=== PATIENT | female | born 1955 | race Caucasian/White ===

== ENCOUNTER 2022-02-11 10:10 | Outpatient (CLI) | payer OTHER, SELFPAY ==
[2022-02-11 14:42] LABS: Albumin* 3.7 g/dL (3.3-5.0); Chloride* 106 mmol/L (96-114); Sodium* 138 mmol/L (135-149)
[2022-02-11 14:45] LABS: Alanine Aminotransferase* 32 U/L (4-35); Alkaline Phosphatase* 82 U/L (40-150); Aspartate Amino Transferase* 25 U/L (12-35); Bilirubin Total* 0.5 mg/dL (0.1-1.5); Blood Urea Nitrogen* 12 mg/dL (7-30); Carbon Dioxide* 28 mmol/L (20-32); Creatinine* 0.6 mg/dL (0.5-1.5); Estimated Glomerular Filt Rate 98.32; Glucose* 129 mg/dL (60-115); Total Protein* 5.8 g/dL (6.0-8.3)
[2022-02-11 14:46] LABS: Calcium* 8.8 mg/dL (8.4-10.6)
== END 2022-02-11 10:11 | disposition home or self-care (01) ==
LOC: LAB 13:47
PROVIDERS: PCP Family Medicine; Visit Provider Dermatology
DX: R53.83 Other fatigue (principal); Z79.899 Other long term (current) drug therapy
CPT/HCPCS: 36415; 80053

== ENCOUNTER 2022-04-05 11:33 | Outpatient (CLI) | payer OTHER, SELFPAY ==
[2022-04-05 17:57] LABS: Albumin* 3.8 g/dL (3.3-5.0); Chloride* 102 mmol/L (96-114); Potassium* 4.6 mmol/L (3.6-5.1); Sodium* 136 mmol/L (135-149)
[2022-04-05 17:59] LABS: Creatinine* 0.7 mg/dL (0.5-1.5); Estimated Glomerular Filt Rate 94 ml/min
[2022-04-05 18:00] LABS: Alanine Aminotransferase* 62 U/L (4-35); Alkaline Phosphatase* 88 U/L (40-150); Aspartate Amino Transferase* 35 U/L (12-35); Bilirubin Total* 0.6 mg/dL (0.1-1.5); Blood Urea Nitrogen* 12 mg/dL (7-30); Calcium* 9.1 mg/dL (8.4-10.6); Carbon Dioxide* 27 mmol/L (20-32); Glucose* 195 mg/dL (60-115); Total Protein* 6.2 g/dL (6.0-8.3)
== END 2022-04-05 11:34 | disposition home or self-care (01) ==
LOC: LONREF 11:34
PROVIDERS: PCP Family Medicine; Visit Provider Dermatology
DX: Z79.899 Other long term (current) drug therapy (principal)
CPT/HCPCS: 80053

== ENCOUNTER 2022-05-12 12:47 | Outpatient (CLI) | payer MEDICARE, SELFPAY ==
--- NOTE | 2022-05-12 13:30 | CRLHL7_ITS ---
For Patients: As a result of the Century Cures Act, medical imaging exams and procedure reports are released immediately into your electronic medical record. You may view this report before your referring provider. If you have questions, please contact your health care provider. DXA BONE MINERAL DENSITY STUDY Current height (in): 65.0. Weight (lb): 170.0. Menopause age: 46. Ethnicity: White. Reason for exam: Screening. 1. Have you had a previous hip or vertebral fracture? No. 2. Have you had any fractures during your adult life which did not result from significant trauma (e.g., auto accident)? Yes. 3. Did either of your parents have a hip fracture? No. 4. Do you smoke? No. 5. Have you ever taken Glucocorticoids? No. 6. Do you have rheumatoid arthritis? No. 7. Do you have secondary osteoporosis? No. 8. Do you drink 3 or more alcoholic drinks per day? No. 9. Are you being treated for osteoporosis? No. 10. Have you ever taken any of the following medications: Actonel, Evista, Fosamax, Miacalcin, Reclast, Boniva, Forteo, HRT (i.e. estrogen/hormone therapy), Protelos, Prolia, Vitamin D, Calcium, other ??? please specify. ANSWER: Yes, vitamin D. 11. Do you have any of the following medical conditions: Anorexia or bulimia, asthma or emphysema, end stage renal disease, hyperparathyroidism, any seizure disorders, cancer, inflammatory bowel diseases, hysterectomy, other ??? please specify. ANSWER: No. 12. What was your maximum height (inches)? 65. 13. Do you perform weight bearing exercise regularly? No. 14. Do you regularly consume dairy products? Yes. 15. Do you drink caffeinated beverages? Yes. If female: 16. At what age did your period start? 14. 17. Are you premenopausal? No. 18. How many full term pregnancies have you had? 3. 19. Have you ever missed your period for more than 6 months in a row (not including or menopause)? No. TECHNIQUE: Bone mineral density study was performed using the [employer]. FINDINGS: The results of the study expressed as bone mineral density (BMD) are as follows: Lumbar spine L1 to L4: BMD: 1.019 g/cm2. T-score: -0.3. Z-score: 1.7. Neck Left: BMD: 0.746 g/cm2. T-score: -0.9. Z-score: 0.8. Right: BMD: 0.692 g/cm2. T-score: -1.4. Z-score: 0.3. Total Left: BMD: 0.995 g/cm2. T-score: 0.4. Z-score: 1.8. Right: BMD: 0.911 g/cm2. T-score: -0.3. Z-score: 1.1. IMPRESSION: Osteopenia. COMPARISON: Compared with scan of 11/11/2011, the bone mineral density has decreased by 11.6 percent at the spine and decreased by 11.2 percent at the hip. FRAX 10-year Fracture Risk Major Osteoporotic Fracture: 15 percent Hip Fracture: 1.7 percent Reported Risk Factors: [place] () Neck BMD = 0.692, BMI = 28.3 Gal Chatman M.D. Diagnostic Radiologist [email or web address] Transcribed: 9:37 a.m. DW/Dictated by: Gal Chatman MD @ 05/13/2022 8:54:00 AM (Electronically Signed)
== END 2022-05-12 12:48 | disposition home or self-care (01) ==
PROVIDERS: PCP Family Medicine; Visit Provider Family Medicine
DX: Z13.820 Encounter for screening for osteoporosis (principal); M85.89 Other specified disorders of bone density and structure, multiple sites
CPT/HCPCS: 77080

== ENCOUNTER 2022-06-28 10:24 | Outpatient (CLI) | payer MEDICARE, SELFPAY ==
[2022-06-28 17:13] LABS: Albumin* 4.1 g/dL (3.3-5.0); Chloride* 103 mmol/L (96-114); Potassium* 4.6 mmol/L (3.6-5.1); Sodium* 137 mmol/L (135-149)
[2022-06-28 17:16] LABS: Alanine Aminotransferase* 52 U/L (4-35); Alkaline Phosphatase* 95 U/L (40-150); Aspartate Amino Transferase* 37 U/L (12-35); Bilirubin Total* 0.7 mg/dL (0.1-1.5); Blood Urea Nitrogen* 13 mg/dL (7-30); Carbon Dioxide* 27 mmol/L (20-32); Creatinine* 0.6 mg/dL (0.5-1.5); Estimated Glomerular Filt Rate 98 ml/min; Glucose* 94 mg/dL (60-115); Total Protein* 6.5 g/dL (6.0-8.3)
[2022-06-28 17:17] LABS: Calcium* 9.4 mg/dL (8.4-10.6)
== END 2022-06-28 10:25 | disposition home or self-care (01) ==
PROVIDERS: PCP Family Medicine; Visit Provider Dermatology
DX: L40.9 Psoriasis, unspecified (principal)
CPT/HCPCS: 80053

== ENCOUNTER 2022-08-10 10:44 | Outpatient (CLI) | payer MEDICARE, SELFPAY ==
[2022-08-10 21:51] LABS: Albumin* 4.2 g/dL (3.3-5.0)
[2022-08-10 21:54] LABS: Alkaline Phosphatase* 102 U/L (40-150); Aspartate Amino Transferase* 29 U/L (12-35); Bilirubin Direct* 0.3 mg/dL (0.0-0.5); Bilirubin Total* 0.8 mg/dL (0.1-1.5); Total Protein* 6.6 g/dL (6.0-8.3)
[2022-08-10 21:55] LABS: Alanine Aminotransferase* 50 U/L (4-35)
== END 2022-08-10 10:45 | disposition home or self-care (01) ==
PROVIDERS: PCP Family Medicine; Visit Provider Dermatology
DX: L40.9 Psoriasis, unspecified (principal); Z79.899 Other long term (current) drug therapy; Z11.1 Encounter for screening for respiratory tuberculosis
CPT/HCPCS: 80076; 86480

== ENCOUNTER 2022-11-16 13:20 | Outpatient (CLI) | payer MEDICARE, SELFPAY | END 2022-11-16 13:21 | disposition home or self-care (01) | LOC: NFLDREF 11-17 02:49 | PROVIDERS: PCP Family Medicine; Referring Provider Family Medicine; Visit Provider Dermatology | DX: L40.9 Psoriasis, unspecified (principal) | CPT/HCPCS: 80053 ==

== ENCOUNTER 2023-03-08 13:24 | Outpatient (CLI) | payer MEDICARE, SELFPAY | END 2023-03-08 13:25 | disposition home or self-care (01) | LOC: LONREF 13:26 | PROVIDERS: PCP Family Medicine; Visit Provider Family Medicine | DX: E13.9 Other specified diabetes mellitus without complications (principal); Z13.0 Encounter for screening for diseases of the blood and blood-forming organs and certain disorders involving the immune mechanism; Z79.631 Long term (current) use of antimetabolite agent | CPT/HCPCS: 80053 ==

== ENCOUNTER 2023-05-30 11:31 | Outpatient (CLI) | payer MEDICARE, SELFPAY | END 2023-05-30 11:32 | disposition home or self-care (01) | LOC: NFLDREF 05-31 19:42 | PROVIDERS: PCP Family Medicine; Referring Provider Family Medicine; Visit Provider Dermatology | DX: G25.81 Restless legs syndrome (principal); R07.89 Other chest pain; Z79.631 Long term (current) use of antimetabolite agent | CPT/HCPCS: 80053 ==

== ENCOUNTER 2023-08-30 11:35 | Outpatient (CLI) | payer MEDICARE, SELFPAY | END 2023-08-30 11:36 | disposition home or self-care (01) | LOC: NFLDREF 09-02 12:37 | PROVIDERS: PCP Family Medicine; Referring Provider Family Medicine; Visit Provider Dermatology | DX: L40.9 Psoriasis, unspecified (principal); Z79.631 Long term (current) use of antimetabolite agent | CPT/HCPCS: 80053 ==

== ENCOUNTER 2024-02-14 10:28 | Outpatient (CLI) | payer MEDICARE, SELFPAY | END 2024-02-14 10:29 | disposition home or self-care (01) | LOC: NFLDREF 02-16 11:39 | PROVIDERS: PCP Family Medicine; Referring Provider Family Medicine; Visit Provider Family Medicine | DX: L40.9 Psoriasis, unspecified (principal); Z79.631 Long term (current) use of antimetabolite agent | CPT/HCPCS: 80076 ==

== ENCOUNTER 2024-10-16 14:40 | Outpatient (CLI) | payer MEDICARE, SELFPAY | END 2024-10-16 14:41 | disposition home or self-care (01) | PROVIDERS: PCP Family Medicine; Visit Provider Family Medicine | DX: E13.9 Other specified diabetes mellitus without complications (principal); L65.9 Nonscarring hair loss, unspecified; E78.00 Pure hypercholesterolemia, unspecified; Z13.29 Encounter for screening for other suspected endocrine disorder | CPT/HCPCS: 80048; 80061; 82043; 82570; 84443 ==